=== PATIENT | female | born 1945 | race Two or more races ===

== ENCOUNTER 2018-07-08 07:11 | Outpatient (CLI) | payer OTHER ==
[~2018-07-08 07:11] MED LIST: AMBIEN10 MG PO; ASPIR 8181 MG; CATAFLAN PO; COZAAR100 MG; EQ VISION FORM1 EACH; NABUMETONE500 MG PO; PERCOCET 5/3251 TAB PO; PNEU16DI2
== END 2018-07-08 07:14 | disposition home or self-care (01) ==
LOC: RAD 07:11
DX: H25.12 Age-related nuclear cataract, left eye (principal)

== ENCOUNTER 2018-08-06 12:15 | Outpatient (CLI) | payer OTHER | END 2018-08-06 12:22 | disposition home or self-care (01) | LOC: TOM 12:15 | DX: G30.1 Alzheimer's disease with late onset (principal); I62.03 Nontraumatic chronic subdural hemorrhage ==

== ENCOUNTER 2018-09-20 14:33 | Outpatient (CLI) | payer OTHER | END 2018-09-20 14:37 | disposition home or self-care (01) | LOC: RAD 14:33 | DX: R06.02 Shortness of breath (principal); J98.19 Other pulmonary collapse ==

== ENCOUNTER 2018-09-27 11:12 | Outpatient (CLI) | payer OTHER | END 2018-09-27 11:20 | disposition home or self-care (01) | LOC: TOM 11:12 | DX: R06.02 Shortness of breath (principal); J18.0 Bronchopneumonia, unspecified organism; J98.11 Atelectasis; R06.6 Hiccough ==

== ENCOUNTER 2019-06-07 13:25 | Outpatient (CLI) | payer OTHER | END 2019-06-07 13:27 | disposition home or self-care (01) | LOC: RAD 13:25 | DX: M51.36 Other intervertebral disc degeneration, lumbar region (principal) ==

== ENCOUNTER 2020-12-18 13:46 | Outpatient (CLI) | payer OTHER | END 2020-12-18 13:57 | disposition home or self-care (01) | LOC: MAMO-SONO 13:46 | DX: Z12.31 Encounter for screening mammogram for malignant neoplasm of breast (principal); Z13.820 Encounter for screening for osteoporosis; M16.0 Bilateral primary osteoarthritis of hip ==